=== PATIENT | male | born 1930 | race Caucasian/White ===

== ENCOUNTER 2021-06-20 10:41 | Day surgery (SDC) | payer OTHER, SELFPAY ==
[~2021-06-20] VITALS: Ht 162.6 cm; Wt 68.0 kg
[~2021-06-20 10:41] MED LIST: CEFAZOLIN SOD 1 GM in D5W 50 ML IV ONE
[2021-06-20 11:46] LABS: BASOPHILS % (AUTO) 0.3 % (0.0-2.0); EOSINOPHILS # (AUTO) 0.2 K/uL (0.0-0.4); EOSINOPHILS % (AUTO) 2.1 % (0.0-4.0); HEMATOCRIT 39.4 % (36-54); HEMOGLOBIN 12.8 g/dL (14.0-18.0); LYMPHOCYTES # (AUTO) 5.1 K/uL (1.0-5.5); LYMPHOCYTES % (AUTO) 58.4 % (20.5-51.5); MEAN CORPUSCULAR HEMOGLOBIN 29 pg (27-31); MEAN CORPUSCULAR HGB CONC 32 % (32-36); MEAN CORPUSCULAR VOLUME 90 fL (79.0-98.0); MONOCYTES # (AUTO) 0.4 K/uL (0.0-1.0); MONOCYTES % (AUTO) 4.1 % (1.7-9.3); NEUTROPHILS % (AUTO) 35.1 % (40.0-70.0); PLATELET COUNT (AUTO) 130 K/uL (130-430); RED BLOOD CELL COUNT(AUTO) 4.39 MIL/uL (4.2-6.2); RED CELL DISTRIBUTION WIDTH 15.7 % (9.0-15.0); WHITE BLOOD COUNT (AUTO) 8.7 K/uL (4.8-10.8)
[2021-06-20 12:00] LABS: ANION GAP 10 (5-15); CALCIUM 8.9 mg/dL (8.4-11.0); CHLORIDE 107 mmol/L (98-107); CREATININE 2.99 mg/dL (0.55-1.30); GLUCOSE 101 mg/dL (70-99); POTASSIUM 4.9 mmol/L (3.5-5.1); SODIUM SERUM 139 mmol/L (136-145); UREA NITROGEN, BLOOD 59 mg/dL (8-21)
[2021-06-20] MEDS ORDERED: BUPIVACAINE /PF 0.25% 10 ML VIAL INJ ONE (14:15)
[2021-06-20] MEDS ORDERED: PROPOFOL 200MG/ 20ML VIAL (DIPRIVAN) IV ONE (14:15)
[2021-06-20] MEDS ORDERED: NS IRRIG SOLN 1000 ML IR ONE (14:15)
[2021-06-20] MEDS ORDERED: ONDANSETRON HCL 4 MG/2 ML VIAL IVP ONE (14:15)
[2021-06-20] MEDS ORDERED: SEVOFLURANE 15 MIN GAS INH ONE (14:15)
[2021-06-20] MEDS ORDERED: MIDAZOLAM HCL 5 MG/5 ML VIAL IVP ONE (14:15)
[2021-06-20] MEDS ORDERED: DEXAMETHASONE SOD PHOSPHATE 4 MG/ML VIAL IVP ONE (14:15)
[2021-06-20] MEDS ORDERED: LR 1,000 ML IV.SOLN IV ONE (14:15)
[2021-06-20] MEDS ORDERED: fentaNYL CITRATE 250 MCG/5 ML AMP IV ONE (14:15)
[2021-06-20] MEDS ORDERED: ACETAMINOPHEN I.V. 1000 MG 100 ML IV ONE (14:45)
[2021-06-20] MEDS ORDERED: LR 1,000 ML IV SCH (15:15)
[2021-06-20] MEDS ORDERED: METOCLOPRAMIDE HCL 10 MG/2 ML VIAL IVP PRN (15:15)
[2021-06-20] MEDS ORDERED: HYDROmorphone 1 MG/ML INJ. CARTRIDGE IVP PRN ×2 (15:15)
[2021-06-20] MEDS ORDERED: MEPERIDINE HCL/PF 25 MG/ML DISP.SYRIN IVP PRN (15:15)
[2021-06-20] MEDS ORDERED: HYDROcodone/ACETAMIN 5-325 MG TAB (NORCO/ VICODIN) PO PRN ×2 (15:45)
[2021-06-20] MEDS ORDERED: D5/0.45 NS 1,000 ML IV SCH (15:45)
[2021-06-20 17:25] VITALS: BP_SYST 106
== END 2021-06-20 18:00 | disposition home or self-care (01) ==
LOC: SDS 10:41 → SMU 10:42 → SDS 18:00
PROVIDERS: ATTEND Colon & Rectal Surgery
DX: K40.30 Unilateral inguinal hernia, with obstruction, without gangrene, not specified as recurrent (principal); I12.9 Hypertensive chronic kidney disease with stage 1 through stage 4 chronic kidney disease, or unspecified chronic kidney disease; N18.4 Chronic kidney disease, stage 4 (severe); I48.91 Unspecified atrial fibrillation; J44.9 Chronic obstructive pulmonary disease, unspecified; M19.90 Unspecified osteoarthritis, unspecified site; Z20.822 Contact with and (suspected) exposure to COVID-19; F17.210 Nicotine dependence, cigarettes, uncomplicated; Z79.899 Other long term (current) drug therapy
CPT/HCPCS: 36415; 49507; 80048; 85025; 87426; C1781; J0131; J0690; J1100; J2250; J2405; J2704; J3010; J3490; J7060; J7120; U0003